=== PATIENT | female | born 1975 | race Caucasian/White ===

== ENCOUNTER 2018-02-14 00:08 | Emergency (ER) | payer BC ==
[2018-02-14 00:38] VITALS: BP 136/90
[2018-02-14] MEDS ORDERED: Ketorolac 60 MG/2 ML SDV IM ONE (01:08)
--- NOTE | 2018-02-14 01:12 | EDM.PDOC ---
ED HPI GENERAL MEDICAL PROBLEM - General Chief Complaint: Lower Extremity Injury/Pain Stated Complaint: FELL OF A 6 FOOT POLE Time Seen by Provider: 02/14/18 01:05 Source of Information: Reports: Patient, Family, RN Notes Reviewed History Limitations: Reports: No Limitations - History of Present Illness INITIAL COMMENTS - FREE TEXT/NARRATIVE: 42-year-old female presents to the emergency department today complaint of left leg pain, she injured herself earlier today when she was doing a workout routine on a pole lost her balance flipped over and landed predominantly on her left leg with the bit of hyperextension, she cannot bear weight Left Knee Pain Score (Numeric/FACES): 8 - Related Data Allergies Allergy/AdvReac Type Severity Reaction Status Date / Time bupropion HCl Allergy Severe Anaphylactic Verified 02/14/18 00:42 [From Wellbutrin] Shock Latex, Natural Rubber Allergy Severe Anaphylactic Verified 02/14/18 00:42 Shock morphine Allergy Severe Anaphylactic Verified 02/14/18 00:42 Shock adhesive Allergy Rash Verified 02/14/18 00:42 banana Allergy Hives Verified 02/14/18 00:42 chocolate flavor Allergy Hives Verified 02/14/18 00:42 kiwi Allergy Hives Verified 02/14/18 00:42 hydromorphone AdvReac Intermediate Hypertensio Verified 02/14/18 00:42 n aspartame AdvReac Nausea Verified 02/14/18 00:42 hydromorphone HCl AdvReac Hypertensio Verified 02/14/18 00:42 [From Dilaudid] n meperidine HCl [From Demerol] AdvReac Hallucinati Verified 02/14/18 00:42 ons sausage Allergy Hives Uncoded 02/04/18 15:39 Home Meds: Home Meds Ondansetron [Zofran ODT] 4 mg PO Q4H PRN 09/29/15 [History] Thiamine [Vitamin B-1] 100 mg IM .Q30D 02/29/16 [History] Cyanocobalamin (Vitamin B-12) [Cyanocobalamin Injection] 1 ml IJ [id number] [History] SUMAtriptan Succinate [Imitrex] 50 mg PO ASDIRECTED 07/11/16 [History] Lubiprostone [Amitiza] 24 mcg PO BIDMEALS cap 11/12/16 [Rx] Metoprolol Succinate 25 mg PO BEDTIME 09/03/17 [History] Folic Acid 1 mg PO DAILY 12/24/17 [History] Acarbose [Precose] 1 tab PO TID 02/14/18 [History] Past Medical History HEENT History: Reports: Allergic Rhinitis, Sinusitis Cardiovascular History: Reports: Afib, Hypertension Other Cardiovascular History: resolved htn Respiratory History: Reports: Bronchitis, Recurrent, Other (See Below) Other Respiratory History: Exercise induced asthma Gastrointestinal History: Reports: Cholelithiasis, Chronic Constipation, GERD, Hemorrhoids Genitourinary History: Reports: Renal Calculus, UTI, Recurrent 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: Reports: Endometriosis, , Other (See Below) Other OB/BYN History: vaginal hematoma evacuated by ZEESHAN 03-09-2016 Musculoskeletal History: Reports: Osteoarthritis, Other (See Below) Other Musculoskeletal History: Right Elbow Pain Neurological History: Reports: Migraines, TIA Psychiatric History: Reports: Psych Hospitalization(s), Suicide Attempt Endocrine/Metabolic History: Reports: Other (See Below) Other Endocrine/Metabolic History: "reactive hypoglycemia" Hematologic History: Reports: B12 Deficiency, Folic Acid, Iron Deficiency Dermatologic History: Reports: Eczema, Psoriasis - Infectious Disease History Infectious Disease History: Reports: Chicken Pox, Shingles - Past Surgical History HEENT Surgical History: Reports: Myringotomy w Tube(s), Naso-Sinus Surgery, Tonsillectomy, Other (See Below) GI Surgical History: Reports: Appendectomy, Bariatric Procedure, Cholecystectomy , Colonoscopy, EGD, Other (See Below) Musculoskeletal Surgical History: Reports: Arthroscopic Procedure, Knee Replacement, Other (See Below) Dermatological Surgical History: Reports: Skin Biopsy Social & Family History - Family History Family Medical History: Noncontributory HEENT: Reports: Glaucoma, Impaired Vision, Otitis Media, Sinusitis Cardiac: Reports: Afib, High Cholesterol, Hypertension Respiratory: Reports: Asthma GI: Reports: Irritable Bowel Syndrome : Reports: Renal Calculus Other Family History: Bladder tumor - benign OBGYN: Reports: Endometriosis Musculoskeletal: Reports: None Neurological: Reports: Cerebral Aneurysms, CVA, Migraines Psychiatric: Reports: Depression Endocrine/Metabolic: Reports: None Hematologic: Reports: None Immunologic: Reports: None Dermatologic: Reports: None Oncologic: Reports: Other (See Below) Other Oncologic Family History: Melanoma - Tobacco Use Smoking Status *Q: Heavy Tobacco Smoker Years of Tobacco use: 24 Packs/Tins Daily: 1 Used Tobacco, but Quit: No Month/Year Tobacco Last Used: t Second Hand Smoke Exposure: No - Caffeine Use Caffeine Use: Reports: None - Alcohol Use Days Per Week of Alcohol Use: 0 - Recreational Drug Use Recreational Drug Use: No Recreational Drug Type: Reports: Marijuana/Hashish Recreational Drug Use Frequency: Not Used In Over 3 Months Review of Systems - Review of Systems Review Of Systems: See Below Musculoskeletal: Reports: Leg Pain, Foot Pain, Joint Pain (Knee and ankle) Skin: Reports: No Symptoms ED EXAM, GENERAL - Physical Exam Exam: See Below Free Text/Narrative:: Examination left lower extremity I don't appreciate any erythema there is no obvious deformity she does have slight edema around the patella, difficult to exam as any tenderness to palpation on the joint line or with patella movement, examination of the ankle I don't appreciate any erythema there is no edema there is no particular tenderness to palpation with flexion and extension of the joint, pedal pulse +2 Exam Limited By: No Limitations General Appearance: Alert, WD/WN, No Apparent Distress Respiratory/Chest: No Respiratory Distress ED TRAUMA EXTREMITY PROCEDURES - Splinting Left Lower Extremity Pre-Procedure NV Status: Normal Post-Procedure NV Status: Normal Splint Material: Fiberglass Splint Design: Posterior Applied & Form Fitted By: Provider, Nurse Provider Post-Splint Application NV Check: NV Status Normal, Good Position Complications: No Course - Vital Signs Last Recorded V/S: Last Vital Signs Temp 98.5 F 02/14/18 00:41 Pulse 95 02/14/18 00:41 Resp 15 02/14/18 00:41 BP 136/90 02/14/18 00:41 Pulse Ox 99 02/14/18 00:41 - Orders/Labs/Meds Orders: Active Orders 24 hr Category Date Time Status Ankle Min 3V Lt [CR] Stat Exams 02/14/18 01:09 Taken Knee 3V Lt [CR] Stat Exams 02/14/18 01:09 Taken Meds: Medications Discontinued Medications Generic Name Dose Route Start Last Admin Trade Name Kenan PRN Reason Stop Dose Admin Fentanyl Confirm 02/14/18 02:07 Sublimaze Administered 02/14/18 02:08 Dose 100 mcg .ROUTE .STK-MED ONE Ketorolac Tromethamine 60 mg 02/14/18 01:08 02/14/18 01:19 Toradol IM 02/14/18 01:09 60 mg ONETIME ONE Administration Departure - Departure Time of Disposition: :17 Disposition: Home, Self-Care 01 Condition: Good Clinical Impression: Tibial plateau fracture, left Qualifiers: Encounter type: initial encounter Fracture type: closed Qualified Code(s): S82.142A - Displaced bicondylar fracture of left tibia, initial encounter for closed fracture - Discharge Information Referrals: Sharonda Dillon MD [Primary Care Provider] - Forms: ED Department Discharge Additional Instructions: Use ibuprofen for baseline pain control, use Percocet for breakthrough pain please keep your appointment with orthopedics on Friday - My Orders Last 24 Hours: My Active Orders 02/14/18 01:09 Ankle Min 3V Lt [CR] Stat Knee 3V Lt [CR] Stat - Assessment/Plan Last 24 Hours: My Active Orders 02/14/18 01:09 Ankle Min 3V Lt [CR] Stat Knee 3V Lt [CR] Stat Plan: Assessment Acuity = acute Site and laterality = tibial plateau fracture Etiology = secondary to trauma Manifestations = pain Location of injury = Home Lab values = x-ray describes fracture above official read radiology is pending Plan She was placed in a posterior splint long leg, Percocet 5/325 one tab by mouth 3 times a day when necessary total #10 provider for pain she has an appointment with orthopedics on Friday This note was dictated using [employer] voice recognition software please call with any questions on syntax or jared.
[2018-02-14] MEDS ORDERED: fentaNYL 100 MCG/2 ML SDV ONE (02:07)
[2018-02-14] MEDS ORDERED: fentaNYL 100 MCG/2 ML SDV IM ONE (02:18)
--- NOTE | 2018-02-16 09:49 | CR ---
Ankle Min 3V Lt FINDINGS: There is normal alignment. There is no evidence of fracture. The ankle mortise appears inta ct. The soft tissues are unremarkable. IMPRESSION: Negative exam.
--- NOTE | 2018-02-16 09:53 | CR ---
Left knee There is a mildly depressed fracture of the lateral tibial plateau. There is approximately 2 mm of de pression of the lateral corner. There is a small joint effusion. Impression: 1. Mildly displaced lateral tibial plateau fracture.
== END 2018-02-14 02:48 | disposition home or self-care (01) ==
LOC: JP.ED 00:08
DX: S82.142A Displaced bicondylar fracture of left tibia, initial encounter for closed fracture (principal); I10 Essential (primary) hypertension; F17.210 Nicotine dependence, cigarettes, uncomplicated; Z88.8 Allergy status to other drugs, medicaments and biological substances; Z88.5 Allergy status to narcotic agent; Z91.018 Allergy to other foods; Z91.040 Latex allergy status; Z79.899 Other long term (current) drug therapy; W17.89XA Other fall from one level to another, initial encounter
CPT/HCPCS: 29505; 73562; 73610; 96372; 99284; J1885; J3010

== ENCOUNTER 2019-08-23 04:31 | Emergency (ER) | payer MEDICAID ==
[2019-08-23] MEDS ORDERED: Sodium Chloride 0.9% 500 ML IV SCH ×2 (05:00→06:00)
--- NOTE | 2019-08-23 05:04 | EDM.PDOC ---
ED HPI GENERAL MEDICAL PROBLEM - General Chief Complaint: Cardiovascular Problem Stated Complaint: HEART ARRHYTHMIA Time Seen by Provider: 08/23/19 04:50 Source of Information: Reports: Patient History Limitations: Reports: No Limitations - History of Present Illness INITIAL COMMENTS - FREE TEXT/NARRATIVE: 43-year-old patient with a history of intermittent atrial fibrillation is 31 weeks gestation, has persistent nausea and has vomited several times over the last 48 hours. Tonight she felt like she had persistent palpitations, possibly atrial fibrillation. 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 She feels nauseous almost every day of her . No chest pain or shortness of breath. She just had a chemistry panel drawn by her OB physician within the last 2 weeks. No fevers or chills. No peripheral edema. Onset: Sudden Associated Symptoms: Reports: Nausea/Vomiting. Denies: Chest Pain, Cough, Fever /Chills, Headaches, Loss of Appetite, Shortness of Breath, Weakness - Related Data Allergies Allergy/AdvReac Type Severity Reaction Status Date / Time bupropion HCl Allergy Severe Anaphylactic Verified 08/23/19 04:49 [From Wellbutrin] Shock Latex, Natural Rubber Allergy Severe Anaphylactic Verified 08/23/19 04:49 Shock morphine Allergy Severe Anaphylactic Verified 08/23/19 04:49 Shock adhesive Allergy Rash Verified 08/23/19 04:49 banana Allergy Hives Verified 08/23/19 04:49 chocolate flavor Allergy Hives Verified 08/23/19 04:49 kiwi Allergy Hives Verified 08/23/19 04:49 tree nut [Pecans] Allergy Hives Verified 08/23/19 04:49 hydromorphone AdvReac Intermediate Hypertensio Verified 08/23/19 04:49 n aspartame AdvReac Nausea Verified 08/23/19 04:49 hydromorphone HCl AdvReac Hypertensio Verified 08/23/19 04:49 [From Dilaudid] n meperidine HCl [From Demerol] AdvReac Hallucinati Verified 08/23/19 04:49 ons sausage Allergy Hives Uncoded 08/23/19 04:49 Home Meds: Home Meds Ondansetron [Zofran ODT] 4 mg PO Q4H PRN 09/29/15 [History] Thiamine [Vitamin B-1] 100 mg IM .Q30D 02/29/16 [History] Cyanocobalamin (Vitamin B-12) [Cyanocobalamin Injection] 1 ml IJ .[id number] [History] SUMAtriptan Succinate [Imitrex] 50 mg PO ASDIRECTED 07/11/16 [History] Folic Acid 1 mg PO DAILY 12/24/17 [History] Pnv No.95/Ferrous Fum/Folic AC [ Caplet] 1 tab PO DAILY 08/23/19 [ History] Past Medical History HEENT History: Reports: Allergic Rhinitis, Sinusitis Cardiovascular History: Reports: Afib, Hypertension Other Cardiovascular History: resolved htn Respiratory History: Reports: Bronchitis, Recurrent, Other (See Below) Other Respiratory History: Exercise induced asthma Gastrointestinal History: Reports: Cholelithiasis, Chronic Constipation, GERD, Hemorrhoids Genitourinary History: Reports: Renal Calculus, UTI, Recurrent 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: Endometriosis, , Other (See Below) Other COMPUTER NETWORKING INSTRUCTOR History: vaginal hematoma evacuated by [facility] 03-09-2016 Musculoskeletal History: Reports: Osteoarthritis, Other (See Below) Other Musculoskeletal History: L Knee Pain Neurological History: Reports: Migraines, TIA Psychiatric History: Reports: Psych Hospitalization(s), Suicide Attempt Endocrine/Metabolic History: Reports: Other (See Below) Other Endocrine/Metabolic History: "reactive hypoglycemia" Hematologic History: Reports: B12 Deficiency, Folic Acid, Iron Deficiency Dermatologic History: Reports: Eczema, Psoriasis - Infectious Disease History Infectious Disease History: Reports: Chicken Pox, Shingles - Past Surgical History HEENT Surgical History: Reports: Myringotomy w Tube(s), Naso-Sinus Surgery, Tonsillectomy, Other (See Below) GI Surgical History: Reports: Appendectomy, Bariatric Procedure, Cholecystectomy , Colonoscopy, EGD, Other (See Below) Musculoskeletal Surgical History: Reports: Arthroscopic Procedure, Knee Replacement, Other (See Below) Dermatological Surgical History: Reports: Skin Biopsy Social & Family History - Family History Family Medical History: Noncontributory HEENT: Reports: Glaucoma, Impaired Vision, Otitis Media, Sinusitis Cardiac: Reports: Afib, High Cholesterol, Hypertension Respiratory: Reports: Asthma GI: Reports: Irritable Bowel Syndrome : Reports: Renal Calculus Other Family History: Bladder tumor - benign OBGYN: Reports: Endometriosis Musculoskeletal: Reports: None Neurological: Reports: Cerebral Aneurysms, CVA, Migraines Psychiatric: Reports: Depression Endocrine/Metabolic: Reports: None Hematologic: Reports: None Immunologic: Reports: None Dermatologic: Reports: None Oncologic: Reports: Other (See Below) Other Oncologic Family History: Melanoma - Caffeine Use Caffeine Use: Reports: Coffee ED ROS GENERAL - Review of Systems Review Of Systems: See Below Constitutional: Denies: Fever, Chills HEENT: Reports: No Symptoms Respiratory: Denies: Shortness of Breath Cardiovascular: Reports: Palpitations. Denies: Chest Pain GI/Abdominal: Reports: Nausea, Vomiting. Denies: Abdominal Pain : Reports: No Symptoms Skin: Reports: No Symptoms Neurological: Reports: Other (Left hand felt like it went numb) ED EXAM, GENERAL - Physical Exam Exam: See Below Exam Limited By: No Limitations General Appearance: Alert, No Apparent Distress Eye Exam: Bilateral Eye: Normal Inspection Head: Atraumatic Respiratory/Chest: No Respiratory Distress, Lungs Clear Cardiovascular: Regular Rate, Rhythm. No: Extra Beats Extremities: No: Pedal Edema Neurological: Alert, Oriented Psychiatric: Normal Affect, Normal Mood Skin Exam: Warm, Dry EKG INTERPRETATION Rhythm: NSR Course - Vital Signs Last Recorded V/S: Last Vital Signs Temp 97.0 F 08/23/19 05:03 Pulse 78 08/23/19 06:20 Resp 12 08/23/19 06:20 BP 113/74 08/23/19 06:20 Pulse Ox 99 08/23/19 06:20 - Orders/Labs/Meds Labs: Laboratory Tests 08/23/19 Range/Units 05:30 Sodium 140 (140-148) mmol/L Potassium 3.2 L (3.6-5.2) mmol/L Chloride 106 (100-108) mmol/L Carbon Dioxide 24 (21-32) mmol/L Anion Gap 13.2 (5.0-14.0) mmol/L BUN 10 (7-18) mg/dL Creatinine 0.6 (0.6-1.0) mg/dL Est Cr Clr Drug Dosing 104.40 mL/min Estimated GFR (MDRD) > 60 (>60) Glucose 75 (74-106) mg/dL Calcium 7.8 L (8.5-10.1) mg/dL Meds: Medications Discontinued Medications Generic Name Dose Route Start Last Admin Trade Name Kenan PRN Reason Stop Dose Admin Sodium Chloride 500 mls @ 1,000 mls/hr 08/23/19 05:00 08/23/19 05:13 Normal Saline IV 1,000 mls/hr ASDIRECTED ELEONORA Administration Sodium Chloride 500 mls @ 1,000 mls/hr 08/23/19 06:00 Normal Saline IV ASDIRECTED ELEONORA Ondansetron HCl 4 mg 08/23/19 05:22 08/23/19 05:29 Zofran IVPUSH 08/23/19 05:23 4 mg ONETIME ONE Administration - Re-Assessments/Exams Free Text/Narrative Re-Assessment/Exam: 08/23/19 05:03 Patient was observed for 10 minutes and continued to be in a normal sinus rhythm. She was given 500 mL bolus of normal saline and kept on cardiac monitoring. 08/23/19 06:22 Patient tolerated first 500 mL without difficulty, researching her clinic records showed she had not had electrolytes checked since January so BMP was drawn and she was given a second half liter. 08/23/19 06:23 Potassium 3.2, calcium 7.8, all other labs normal. She felt better after the liter of fluid and continued to be in sinus rhythm, no tachycardia or palpitations. No PVCs. She'll be discharged to follow-up as usual. Departure - Departure Time of Disposition: 06:32 Disposition: Home, Self-Care 01 Condition: Good Clinical Impression: Palpitations, Dehydration Instructions: Palpitations Referrals: PCP,None [Primary Care Provider] - Forms: ED Department Discharge Care Plan Goals: Stay hydrated, keep all regularly scheduled appointments, and return sooner if symptoms are recurring or persistent
[2019-08-23] MEDS ORDERED: Ondansetron 4 MG/2 ML SDV IVPUSH ONE (05:22)
[2019-08-23 06:33] VITALS: BP 113/74; PULSE 78
== END 2019-08-23 06:33 | disposition home or self-care (01) ==
LOC: JP.ED 04:31
DX: O99.89 Other specified diseases and conditions complicating pregnancy, childbirth and the puerperium (principal); R00.2 Palpitations; O99.283 Endocrine, nutritional and metabolic diseases complicating pregnancy, third trimester; E86.0 Dehydration; O09.523 Supervision of elderly multigravida, third trimester; M19.90 Unspecified osteoarthritis, unspecified site; O99.413 Diseases of the circulatory system complicating pregnancy, third trimester; I48.91 Unspecified atrial fibrillation; O10.913 Unspecified pre-existing hypertension complicating pregnancy, third trimester; Z86.73 Personal history of transient ischemic attack (TIA), and cerebral infarction without residual deficits; Z98.84 Bariatric surgery status; Z90.49 Acquired absence of other specified parts of digestive tract; Z96.22 Myringotomy tube(s) status; Z98.890 Other specified postprocedural states; Z91.018 Allergy to other foods; Z88.5 Allergy status to narcotic agent; Z91.040 Latex allergy status; Z88.8 Allergy status to other drugs, medicaments and biological substances; Z3A.31 31 weeks gestation of pregnancy
CPT/HCPCS: 36415; 80048; 93005; 96361; 96374; 99284-25; J2405; J7030

== ENCOUNTER 2019-10-26 07:00 | Day surgery (SDC) | payer BC, MEDICAID ==
[2019-10-26] MEDS ORDERED: Lidocaine 2% Jelly 30 ML Tube ONE (07:30)
[2019-10-26] MEDS ORDERED: Bupivacaine 0.5% 50 ML MDV ONE (07:30)
[2019-10-26] MEDS ORDERED: Lidocaine 1% with EPINEPHrine 1:100,000 50 ML MDV ONE (07:31)
[2019-10-26] MEDS ORDERED: ceFAZolin 2 GM in Sodium Chloride 0.9% 50 ML IV ONE (08:00)
[2019-10-26] MEDS ORDERED: Midazolam 1 MG/ML 2 ML SDV ONE (08:02)
[2019-10-26] MEDS ORDERED: fentaNYL 100 MCG/2 ML SDV ONE (08:02)
[2019-10-26] MEDS ORDERED: Propofol 200 MG/20 ML SDV ONE (08:02)
[2019-10-26] MEDS ORDERED: Lactated Ringers 1,000 ML IV SCH (08:15)
[2019-10-26] MEDS ORDERED: metroNIDAZOLE/Normal Saline 500 MG in Premix Bag 1 BAG IV ONE (08:30)
[2019-10-26 10:58] VITALS: BP 138/78; PULSE 80
--- NOTE | 2019-10-27 07:50 | OR ---
DATE OF PROCEDURE: 10/26/2019 SURGEON: Jax Murrell MD PROCEDURE: Hemorrhoidectomy, internal and external. PREOPERATIVE DIAGNOSIS: Chronic hemorrhoidal pain. POSTOPERATIVE DIAGNOSIS: Chronic hemorrhoidal pain. FINDINGS: Thrombosed hemorrhoid. COMPLICATIONS: None. 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 INDICATIONS: The patient was originally diagnosed with thrombosed hemorrhoids while she was and has now delivered, requiring definitive care. Again, risks, benefits, alternatives, and limitations including infection, bleeding, abscess formation, fistula formation, other risks not listed here were explained the patient, who wished to proceed. PROCEDURE IN DETAIL: The patient was placed in prone donna-knife position. The largest of the 3 hemorrhoidal piles was identified and anesthetized with lidocaine. This was then removed in a edin-type fashion using a 15 blade in conjunction with electrocautery. The muscle was spared. This was then reapproximated with chromic suture. Gel-Foam dressing was applied. The patient tolerated the procedure well. Jax Murrell MD /[id number]
== END 2019-10-26 10:35 | disposition home or self-care (01) ==
LOC: JP.SDS 07:00
PROVIDERS: ATTEND Surgery
DX: K64.5 Perianal venous thrombosis (principal); G89.29 Other chronic pain; K21.0 Gastro-esophageal reflux disease with esophagitis; I10 Essential (primary) hypertension; E78.5 Hyperlipidemia, unspecified; J45.20 Mild intermittent asthma, uncomplicated; M47.812 Spondylosis without myelopathy or radiculopathy, cervical region; Z98.84 Bariatric surgery status; Z87.891 Personal history of nicotine dependence; Z91.040 Latex allergy status; Z88.5 Allergy status to narcotic agent
CPT/HCPCS: 36415; 46260; 80048; 85025; J0690; J2250; J2704; J3010; J3490; J7050; J7120

== ENCOUNTER 2020-12-30 13:46 | Emergency (ER) | payer MEDICAID ==
[2020-12-30 14:15] VITALS: BP 114/68; PULSE 90
[2020-12-30] MEDS ORDERED: Lactated Ringers 1,000 ML IV ONE (14:35)
--- NOTE | 2020-12-30 14:45 | EDM.PDOC ---
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 She is late in her first trimester of and has known anemia and is scheduled currently for an iron infusion on 01/08/2021. She is taking a PNV + FE now twice a day. Has a pHx of Jose Guadalupe-N-Y gastric bypass. Is trying to drink ample fluids, says her urine is light in color. No GI bleeding. Onset: Gradual Duration: Day(s):, Getting Worse Location: Reports: Generalized Quality: Reports: Other (no pain) Severity: Moderate Improves with: Reports: Rest Worsens with: Reports: Movement Context: Reports: Other (See HPI) Associated Symptoms: Reports: Shortness of Breath (worse with exertion). 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: Reports: Other (see below) (See HPI) Generalized Pain Score (Numeric/FACES): 4 - Related Data Allergies Allergy/AdvReac Type Severity Reaction Status Date / Time bupropion HCl Allergy Severe Anaphylactic Verified 12/30/20 14:01 [From Wellbutrin] Shock Latex, Natural Rubber Allergy Severe Anaphylactic Verified 12/30/20 14:01 Shock morphine Allergy Severe Anaphylactic Verified 12/30/20 14:01 Shock adhesive Allergy Rash Verified 12/30/20 14:01 banana Allergy Hives Verified 12/30/20 14:01 chocolate flavor Allergy Hives Verified 12/30/20 14:01 kiwi Allergy Hives Verified 12/30/20 14:01 tree nut [Pecans] Allergy Hives Verified 12/30/20 14:01 hydromorphone AdvReac Intermediate Hypertensio Verified 12/30/20 14:01 n aspartame AdvReac Nausea Verified 12/30/20 14:01 hydromorphone HCl AdvReac Hypertensio Verified 12/30/20 14:01 [From Dilaudid] n meperidine HCl [From Demerol] AdvReac Hallucinati Verified 12/30/20 14:01 ons sausage Allergy Hives Uncoded 12/30/20 14:01 Home Meds: Home Meds Ondansetron [Zofran ODT] 4 mg PO Q4H PRN 09/29/15 [History] Thiamine [Vitamin B-1] 100 mg IM .Q30D 02/29/16 [History] Cyanocobalamin (Vitamin B-12) [Cyanocobalamin Injection] 1 ml IJ ASDIRECTED 03/02/16 [History] SUMAtriptan succinate [Imitrex] 50 mg PO ASDIRECTED 07/11/16 [History] Folic Acid 1 mg PO DAILY 12/24/17 [History] Pnv No.95/Ferrous Fum/Folic AC [ Caplet] 1 tab PO DAILY 08/23/19 [History] Acetaminophen [Acetaminophen Extra Strength] 500 mg PO Q6H PRN 10/25/19 [History] Albuterol Sulfate [Proair Hfa] 2 puff IH Q4H PRN 10/25/19 [History] Diclofenac Sodium [Voltaren] 2 gm TP QID PRN 10/25/19 [History] EPINEPHrine [Auvi-Q] 0.3 mg IJ ASDIRECTED PRN 10/25/19 [History] Lactobacillus Acidophilus [Acidophilus] 1 each PO DAILY 10/25/19 [History] Loratadine [Claritin] 10 mg PO DAILY 10/25/19 [History] Metoclopramide HCl [Reglan] 10 mg PO Q6H PRN 10/25/19 [History] Past Medical History HEENT History: Reports: Allergic Rhinitis, Sinusitis Cardiovascular History: Reports: Afib, Hypertension Other Cardiovascular History: resolved htn Respiratory History: Reports: Bronchitis, Recurrent, Other (See Below) Other Respiratory History: Exercise induced asthma Gastrointestinal History: Reports: Cholelithiasis, Chronic Constipation, GERD, Hemorrhoids Genitourinary History: Reports: Renal Calculus, UTI, 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 Current Musculoskeletal History: Reports: Osteoarthritis, Other (See Below) Other Musculoskeletal History: L Knee Pain Neurological History: Reports: Migraines, TIA Psychiatric History: Reports: Psych Hospitalization(s), Suicide Attempt Endocrine/Metabolic History: Reports: Other (See Below) Other Endocrine/Metabolic History: "reactive hypoglycemia", GETATIONAL DIABETES. 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 Hematologic History: Reports: B12 Deficiency, Folic Acid, Iron Deficiency Dermatologic History: Reports: Eczema, Psoriasis - Infectious Disease History Infectious Disease History: Reports: Chicken Pox, Shingles - Past Surgical History Head Surgeries/Procedures: Reports: None HEENT Surgical History: Reports: Myringotomy w Tube(s), Naso-Sinus Surgery, Tonsillectomy, Other (See Below) Other HEENT Surgeries/Procedures: EYELID SURGERY Cardiovascular Surgical History: Reports: None Respiratory Surgical History: Reports: None GI Surgical History: Reports: Appendectomy, Bariatric Procedure, Cholecystectomy, Colonoscopy, EGD, Other (See Below) Other GI Surgeries/Procedures: MULTIPLE EXPLORATORY SURGERGIES Female Surgical History: Reports: Kidney stone extraction, Lithotripsy/ESWL Endocrine Surgical History: Reports: None Neurological Surgical History: Reports: None Musculoskeletal Surgical History: Reports: Arthroscopic Procedure, Knee Replacement, Other (See Below) Other Musculoskeletal Surgeries/Procedures:: left knee Dermatological Surgical History: Reports: Skin Biopsy Social & Family History - Family History Family Medical History: No Pertinent Family History HEENT: Reports: Glaucoma, Impaired Vision, Otitis Media, Sinusitis Cardiac: Reports: Afib, High Cholesterol, Hypertension Respiratory: Reports: Asthma GI: Reports: Irritable Bowel Syndrome : Reports: Renal Calculus Other Family History: Bladder tumor - benign OBGYN: Reports: Endometriosis Musculoskeletal: Reports: None Neurological: Reports: Cerebral Aneurysms, CVA, Migraines Psychiatric: Reports: Depression Endocrine/Metabolic: Reports: None Hematologic: Reports: None Immunologic: Reports: None Dermatologic: Reports: None Oncologic: Reports: Other (See Below) Other Oncologic Family History: Melanoma - Tobacco Use Tobacco Use Status *Q: Never Tobacco User Second Hand Smoke Exposure: No - Caffeine Use Caffeine Use: Reports: Soda - Recreational Drug Use Recreational Drug Use: No ED ROS GENERAL - Review of Systems Review Of Systems: See Below Constitutional: Reports: No Symptoms HEENT: Reports: No Symptoms Respiratory: Reports: Shortness of Breath (with exertion). Denies: Cough, Sputum, Hemoptysis Cardiovascular: Reports: Dyspnea on Exertion, Lightheadedness. Denies: Chest Pain, Edema Endocrine: Reports: No Symptoms GI/Abdominal: Reports: No Symptoms. Denies: Black Stool, Bloody Stool, Hematochezia, Melena : Denies: Hematuria Musculoskeletal: Reports: No Symptoms Skin: Reports: No Symptoms Neurological: Reports: No Symptoms ED EXAM, GENERAL - Physical Exam Exam: See Below Exam Limited By: No Limitations General Appearance: Alert, WD/WN, No Apparent Distress Eye Exam: Bilateral Eye: Normal Inspection, Other (pale conjunctivas) Ears: Normal External Exam, Normal Canal, Hearing Grossly Normal Ear Exam: Bilateral Ear: Auricle Normal, Canal Normal Nose: Normal Inspection, No Blood Throat/Mouth: Normal Inspection, Normal Lips, Normal Oropharynx, Normal Voice, No Airway Compromise Head: Atraumatic, Normocephalic Neck: Normal Inspection Respiratory/Chest: No Respiratory Distress, Lungs Clear, Normal Breath Sounds, No Accessory Muscle Use Cardiovascular: Regular Rate, Rhythm, No Edema GI/Abdominal: Normal Bowel Sounds, Soft, Non-Tender, No Distention Back Exam: Normal Inspection. No: CVA Tenderness (R), CVA Tenderness (L) Extremities: Normal Inspection, Normal Range of Motion, Non-Tender, No Pedal Edema Neurological: Alert, Oriented, CN II-XII Intact, Normal Cognition, No Motor/Sensory Deficits Psychiatric: Normal Affect, Normal Mood Course - Vital Signs Last Recorded V/S: Last Vital Signs Temp 36.4 C 12/30/20 14:14 Pulse 90 12/30/20 14:14 Resp 20 12/30/20 14:14 BP 114/68 12/30/20 14:14 Pulse Ox 97 12/30/20 14:14 Orthostatic Blood Pressure [ 117/69 Standing] Orthostatic Blood Pressure [ 110/69 Sitting] Orthostatic Blood Pressure [ 108/66 Supine] - Orders/Labs/Meds Orders: Active Orders 24 hr Category Date Time Status Orthostatic Vital Signs [RC] ASDIRECTED Care 12/30/20 14:21 Active Labs: Laboratory Tests 12/30/20 Range/Units 14:35 Sodium 138 L (140-148) mmol/L Potassium 3.9 (3.6-5.2) mmol/L Chloride 102 (100-108) mmol/L Carbon Dioxide 24 (21-32) mmol/L Anion Gap 15.9 H (5.0-14.0) mmol/L BUN 15 (7-18) mg/dL Creatinine 0.7 (0.6-1.0) mg/dL Est Cr Clr Drug Dosing 88.56 mL/min Estimated GFR (MDRD) > 60 (>60) Glucose 102 (74-106) mg/dL Calcium 8.6 (8.5-10.1) mg/dL Meds: Medications Discontinued Medications Generic Name Dose Route Start Last Admin Trade Name Kenan PRN Reason Stop Dose Admin Lactated Ringer's 1,000 mls @ 1,000 mls/hr 12/30/20 14:35 12/30/20 15:00 Ringers, Lactated IV 12/30/20 15:34 1,000 mls/hr BOLUS ONE Administration Departure - Departure Time of Disposition: 16:00 Disposition: Home, Self-Care 01 Condition: Fair Clinical Impression: First trimester Anemia Qualifiers: Anemia type: iron deficiency Iron deficiency anemia type: other iron deficiency Qualified Code(s): D50.8 - Other iron deficiency anemias - Discharge Information *PRESCRIPTION DRUG MONITORING PROGRAM REVIEWED*: Not Applicable *COPY OF PRESCRIPTION DRUG MONITORING REPORT IN PATIENT THAO: Not Applicable Referrals: Ash Vernon MD [Primary Care Provider] - Forms: ED Department Discharge Additional Instructions: Rest. Call your provider Friday morning regarding your condition. Drink ample fluids and continue your twice daily vitamin + iron with orange juice to improve absorption. Sepsis Event Note (ED) - Evaluation Sepsis Screening Result: No Definite Risk - Focused Exam Vital Signs: Vital Signs Temp Pulse Resp BP Pulse Ox 12/30/20 14:14 36.4 C 90 20 114/68 97 - My Orders Last 24 Hours: My Active Orders 12/30/20 14:21 Orthostatic Vital Signs [RC] ASDIRECTED - Assessment/Plan Last 24 Hours: My Active Orders 12/30/20 14:21 Orthostatic Vital Signs [RC] ASDIRECTED
== END 2020-12-30 16:13 | disposition home or self-care (01) ==
LOC: JP.ED 13:46
DX: O99.011 Anemia complicating pregnancy, first trimester (principal); D50.9 Iron deficiency anemia, unspecified; I48.91 Unspecified atrial fibrillation; I10 Essential (primary) hypertension; Z88.8 Allergy status to other drugs, medicaments and biological substances; Z91.040 Latex allergy status; Z88.5 Allergy status to narcotic agent; Z91.048 Other nonmedicinal substance allergy status; Z91.018 Allergy to other foods; Z91.013 Allergy to seafood; Z86.73 Personal history of transient ischemic attack (TIA), and cerebral infarction without residual deficits
CPT/HCPCS: 36415; 80048; 99284; J7120; 99283

== ENCOUNTER 2021-12-24 22:28 | Emergency (ER) | payer BC, MEDICAID ==
[2021-12-24] MEDS ORDERED: Sodium Chloride 0.9% 10 ML Syringe FLUSH PRN (23:07)
[2021-12-24] MEDS ORDERED: fentaNYL 100 MCG/2 ML SDV IVPUSH ONE (23:09)
[2021-12-24] MEDS ORDERED: Ketorolac 30 MG/ML SDV IVPUSH ONE (23:09)
[2021-12-24] MEDS ORDERED: Ondansetron 4 MG/2 ML SDV IVPUSH ONE (23:09)
[2021-12-24] MEDS ORDERED: Sodium Chloride 0.9% 1,000 ML IV SCH (23:15)
[2021-12-25 00:23] VITALS: BP 110/57; PULSE 67
== END 2021-12-25 00:56 | disposition home or self-care (01) ==
LOC: JP.ED 22:28
DX: N13.1 Hydronephrosis with ureteral stricture, not elsewhere classified (principal); I48.91 Unspecified atrial fibrillation; I10 Essential (primary) hypertension; Z88.8 Allergy status to other drugs, medicaments and biological substances; Z91.040 Latex allergy status; Z88.5 Allergy status to narcotic agent; Z91.048 Other nonmedicinal substance allergy status; Z91.018 Allergy to other foods; Z79.899 Other long term (current) drug therapy
CPT/HCPCS: 36415; 74176; 80053; 81001; 81025; 83735; 85025; 96374; 96375; 99284-25; J1885; J2405; J7030

== ENCOUNTER 2022-09-23 05:57 | Day surgery (SDC) | payer MEDICAID ==
[2022-09-23] MEDS ORDERED: Lactated Ringers 1,000 ML IV SCH (06:15)
[2022-09-23] MEDS ORDERED: Dextrose 5%-Lactated Ringers 1,000 ML IV SCH (07:15)
[2022-09-23] MEDS ORDERED: fentaNYL 100 MCG/2 ML SDV ONE (07:25)
[2022-09-23] MEDS ORDERED: Midazolam 1 MG/ML 2 ML SDV ONE (07:25)
[2022-09-23] MEDS ORDERED: Propofol 200 MG/20 ML SDV ONE (07:25)
[2022-09-23 09:09] VITALS: PULSE 83
[2022-09-23 09:23] VITALS: BP 120/73
== END 2022-09-23 09:35 | disposition home or self-care (01) ==
LOC: JP.SDS 05:57
PROVIDERS: ATTEND Surgery
DX: K21.9 Gastro-esophageal reflux disease without esophagitis (principal); E87.6 Hypokalemia; E66.01 Morbid (severe) obesity due to excess calories; E11.9 Type 2 diabetes mellitus without complications; E16.2 Hypoglycemia, unspecified; Z68.28 Body mass index [BMI] 28.0-28.9, adult; Z91.040 Latex allergy status; Z88.8 Allergy status to other drugs, medicaments and biological substances; Z88.5 Allergy status to narcotic agent; Z91.02 Food additives allergy status; Z91.018 Allergy to other foods
CPT/HCPCS: 36415; 43235; 84703; J2250; J2704; J3010

== ENCOUNTER 2023-04-17 08:13 | Day surgery (SDC) | payer OTHER, MEDICAID ==
[~2023-04-17 08:13] MED LIST: Midazolam 1 MG/ML 2 ML SDV ONE; Propofol 200 MG/20 ML SDV ONE; fentaNYL 50 MCG/ML SDV ONE
[2023-04-17] MEDS ORDERED: Lactated Ringers 1,000 ML IV SCH (08:45)
[2023-04-17] MEDS ORDERED: Cyanocobalamin (Vitamin B12) 1,000 MCG/ML SDV IM ONE (08:45)
[2023-04-17] MEDS ORDERED: Glycopyrrolate 0.2 MG/ML 2 ML SDV IVPUSH ONE (09:15)
[2023-04-17] MEDS ORDERED: 50% Dextrose in Water 50 ML Syringe IVPUSH ONE ×2 (09:30→12:53)
[2023-04-17] MEDS ORDERED: MVI, Adult with Vitamin K 10 ML, Thiamine 200 MG, Zinc/Copper/Manganese/Selenium 1 ML i... IV ONE ×4 (09:45)
[2023-04-17] MEDS ORDERED: Sodium Chloride 0.9% 1,000 ML IV SCH (11:00)
[2023-04-17] MEDS ORDERED: Hyoscyamine 0.125 MG Tab.SL SL ONE (11:30)
[2023-04-17] MEDS ORDERED: ferumoxytoL 510 MG in Sodium Chloride 0.9% 100 ML IV ONE (11:30)
[2023-04-17] MEDS ORDERED: Hydrocortisone Sodium Succinate 100 MG/2 ML SDV IVPUSH PRN (11:30)
[2023-04-17] MEDS ORDERED: Famotidine 20 MG/2 ML SDV IVPUSH PRN (11:30)
[2023-04-17] MEDS ORDERED: diphenhydrAMINE 50 MG/ML SDV IVPUSH PRN (11:30)
[2023-04-17 13:29] VITALS: BP 132/76; PULSE 98
== END 2023-04-17 13:29 | disposition home or self-care (01) ==
LOC: JP.SDS 08:13
PROVIDERS: ATTEND Surgery
DX: R13.10 Dysphagia, unspecified (principal); K21.9 Gastro-esophageal reflux disease without esophagitis; J45.909 Unspecified asthma, uncomplicated; Z88.8 Allergy status to other drugs, medicaments and biological substances; Z98.84 Bariatric surgery status; Z91.040 Latex allergy status; Z88.5 Allergy status to narcotic agent
CPT/HCPCS: 81025; A9270-GY; J2250; J2704; J3010; J3411; J3420; J3490; J7030; J7120; Q0138

== ENCOUNTER 2025-06-13 06:19 | Day surgery (SDC) | payer OTHER, MEDICAID ==
[2025-06-13] MEDS ORDERED: Lactated Ringers 1,000 ML IV SCH (07:00)
[2025-06-13] MEDS: Scopalamine 1mg/3day Transdermal Patch TOP SCH (07:23)
[2025-06-13] MEDS ORDERED: Midazolam 1 MG/ML 2 ML SDV ONE (07:29)
[2025-06-13] MEDS ORDERED: Propofol 200 MG/20 ML SDV ONE (07:30)
[2025-06-13] MEDS ORDERED: fentaNYL 50 MCG/ML SDV ONE (07:30)
[2025-06-13 10:28] VITALS: BP 119/72; PULSE 74
== END 2025-06-13 09:10 | disposition home or self-care (01) ==
LOC: JP.SDS 06:19
PROVIDERS: ATTEND Surgery
DX: K20.90 Esophagitis, unspecified without bleeding (principal); Z98.0 Intestinal bypass and anastomosis status
CPT/HCPCS: 00731; 43235; A9270; J2250; J2704; J3010; J7121